=== PATIENT | male | born 1980 | race African-American/Black ===

== ENCOUNTER 2019-12-26 12:28 | Emergency (ER) | payer BC ==
[~2019-12-26] VITALS: Ht 167.6 cm; Wt 109.1 kg
[2019-12-26 13:52] VITALS: BP 123/68
[2019-12-26] MEDS ORDERED: NEOMYCIN/POLYMYXIN B/HYDROCORT 10 ML OTIC SOLUTION AD ONE (14:15)
[2019-12-26] MEDS ORDERED: ACETAMINOPHEN 500 MG TABLET PO ONE (14:45)
== END 2019-12-26 15:03 | disposition home or self-care (01) ==
LOC: EMS 12:40
DX: H61.91 Disorder of right external ear, unspecified (principal); F17.210 Nicotine dependence, cigarettes, uncomplicated; J45.909 Unspecified asthma, uncomplicated
CPT/HCPCS: 99406